=== PATIENT | female | born 1945 | race Caucasian/White ===

== ENCOUNTER → 2017-05-28 | Outpatient (CLI) | payer MEDICARE | LOC: MC.RAD 08:20 | DX: Z12.31 Encounter for screening mammogram for malignant neoplasm of breast (principal) ==

== ENCOUNTER → 2018-05-29 | Outpatient (CLI) | payer MEDICARE | LOC: MC.RAD 08:19 | DX: Z12.31 Encounter for screening mammogram for malignant neoplasm of breast (principal) ==

== ENCOUNTER → 2019-03-27 | Outpatient (CLI) | payer MEDICARE | LOC: ZCOL.LAB 13:38 | DX: H90.5 Unspecified sensorineural hearing loss (principal) ==

== ENCOUNTER → 2019-06-05 | Outpatient (CLI) | payer MEDICARE | LOC: MC.RAD 08:42 | DX: Z12.31 Encounter for screening mammogram for malignant neoplasm of breast (principal) ==

== ENCOUNTER → 2020-06-07 | Outpatient (CLI) | payer MEDICARE | LOC: MC.RAD 08:03 | DX: Z12.31 Encounter for screening mammogram for malignant neoplasm of breast (principal) ==

== ENCOUNTER → 2021-07-18 | Outpatient (CLI) | payer MEDICARE | LOC: MC.RAD 08:30 | DX: Z12.31 Encounter for screening mammogram for malignant neoplasm of breast (principal) ==

== ENCOUNTER 2024-06-24 06:39 | Day surgery (SDC) | payer MEDICARE ==
[~2024-06-24] VITALS: Ht 149.9 cm; Wt 75.0 kg
[2024-06-24] VITALS (12 sets, daily range): BP systolic 96–148; BP diastolic 55–92; PULSE 90–110; TEMP 98.7
[2024-06-24] MEDS ORDERED: 1/2 NS 1,000 ML IV SCH ×2 (07:00→12:15)
[2024-06-24 07:44] LABS: HEMOGLOBIN 10.5 g/dl (12.5-16.0); MEAN CELL VOLUME 92 fl (80.0-100.0); MEAN CORPUSCULAR HEMOGLOBIN 30 pg (27-31); MEAN CORPUSCULAR HGB CONC 32 g/dl (33.0-37.0); MEAN PLATELET VOLUME 8.9 fl (7.4-10.4); PLATELET COUNT 445 K/mm3 (130-400); RED BLOOD COUNT 3.52 M/mm3 (4.10-5.30); REDCELL DISTRIBUTION WIDTH-CV 13.3 % (11.5-14.5)
[2024-06-24 07:47] LABS: HEMATOCRIT 32.5 % (37.0-47.0)
[2024-06-24] MEDS ORDERED: NORVASC 5MG5 MG/TAB PO (07:54)
[2024-06-24] MEDS ORDERED: PRINIVIL20 MG PO (07:54)
[2024-06-24 07:57] LABS: PROTHROMBIN TIME 10.8 SECONDS (9.7-12.8)
[2024-06-24] MEDS ORDERED: SYNTHROID0.125 MG/T PO (07:58)
[2024-06-24 07:59] LABS: PARTIAL THROMBOPLASTIN TIME 30.4 SECONDS (26.0-37.0)
[2024-06-24] MEDS ORDERED: ASPIRIN E.C. 8181 MG PO (07:59)
[2024-06-24] MEDS ORDERED: LUTEIN20 M1 PO (07:59)
[2024-06-24] MEDS ORDERED: IRON TABLETS325 MG PO (08:01)
[2024-06-24] MEDS ORDERED: TYLENOL 8 HR PO (08:01)
[2024-06-24] MEDS ORDERED: MASON NATURAL2000 IU PO (08:02)
[2024-06-24] MEDS ORDERED: CENTRUM SILVER1 TA2 PO (08:03)
[2024-06-24 08:12] LABS: CALCIUM 11.4 mg/dL (8.4-10.2); CREATININE, serum 1.51 mg/dL (0.57-1.11); POTASSIUM 4.8 mEq/L (3.5-4.5)
[2024-06-24] MEDS ORDERED: Heparin 1,000 UNITS/ML 10 ML Multi-Dose VIAL IV SCH (09:42)
[2024-06-24] MEDS ORDERED: niCARdipine (Cath Lab) 100 MCG/ML 10 ML VIAL IA SCH (09:45)
[2024-06-24] MEDS ORDERED: Midazolam 2 MG/2 ML VIAL IV SCH (09:47)
[2024-06-24] MEDS ORDERED: fentaNYL 50 MCG/ML 2 ML VIAL IV SCH (09:48)
--- NOTE | 2024-06-24 09:57 | NUR ---
Please see merge document on paper chart for record of LHC with Dr. Alexandra
[2024-06-24] MEDS ORDERED: Iohexol 350 - 100 ML VIAL INCOR ONE (10:58)
--- NOTE | 2024-06-24 11:00 | NUR ---
PT RETURNED TO [facility] VIA BED FROM [employer], AWAKE AND ALERT, RADIAL BAND ON IN PLACE WITH NO O0ZING OR SWELLING, RIGHT GROIN SITE WITH SCANT DRAINAGE ON TOP OF 2X2, MARKED, AREA IS SOFT. PEDAL PULSE REMAINS STRONG. PT HAD QUESTIONS ON RECOVERY AND DR ORDERS AND ACTIVITY ORDERS REVIEWED WITH PT, CALL LIGHT IN REACH
--- NOTE | 2024-06-24 11:15 | NUR ---
RIGHT GROIN SITE REMAINS THE SAME, PT HAVING NECK AND SOME BACK DISCOMFOR THAT IS NORMAL FOR HERE SHE STATES, DOES NOT LIE FLAT WELL, REPOSITIONED AND TOWEL ROLLS USED
--- NOTE | 2024-06-24 11:30 | NUR ---
RIGHT GROIN SITE REMAINS THE SAME, SOFT, NO SIGNS OF INCREASE BLEEDING
--- NOTE | 2024-06-24 11:45 | NUR ---
RIGHT GROIN SITE REMAINS CLEAN AND DRY, NO SWELLING, PT WATCHES TV, DECLINES SNACK AT THIS TIME
[2024-06-24] MEDS ORDERED: Acetaminophen 325 MG TAB PO PRN (12:15)
--- NOTE | 2024-06-24 12:15 | NUR ---
IV REMAINS AT 100CC/HR VIA PUMP ORDERED, PT C/O INCREASE NECK AND BACK PAIN FOR LYING IN BED, RATES AT 8-9, TYLENOL 650MG PO GIVEN
--- NOTE | 2024-06-24 13:00 | NUR ---
GROIN SITE WITH SCAN AMT OF DRAINAGE ON UPPER END, 2CC OF AIR LET OUT OF BAND, WILL CON'T TO MONITOR, LUNCH ORDERED
--- NOTE | 2024-06-24 13:30 | NUR ---
TR BAND REMOVED AFTER AIR REMOVED OVER 20 MIN, NO SWELLING OR SIGNS OF BLEEDING, BANDAID OVER SITE WITH COBAN FOR SUPPORT, RIGHT GROIN SITE REMAINS THE SAME, CON'T TO MONITOR WITH SCANT/MARKED BLOOD ON TOP OF 2X2, AREA SOFT PT EATS SANDWICH, IV CON'T AT 100CC/HR
--- NOTE | 2024-06-24 14:49 | NUR ---
PT RESTING, NO CHANGES, REPORT TO KUNAL GUERRERO
--- NOTE | 2024-06-24 17:17 | NUR ---
PT TOLERATED RECOVERY PERIOD WELL. VS REMAINED WITHIN NORMAL LIMITS. RIGHT RADIAL AND FEMORAL DRESSINGS REMAINED CLEAN DRY AND INTACT. RIGHT RADIAL AND FEMORAL SITED REMAINED FREE FROM SIGNS OF BLEEDING AND HEMATOMA. PT VERBALIZED UNDERSTANDING OF DISCHARGE INSTRUCTIONS. PT FREE FROM ACUTE CONCERNS AND COMPLAINTS UPON DISCHARGE. PT ASSISTED TO ER EXIT VIA WHEELCHAIR. IV DISCONTINUED.
== END 2024-06-24 17:19 | disposition home or self-care (01) ==
LOC: COL.CAR 06:39
PROVIDERS: Internal Medicine Cardiovascular Disease
DX: I35.0 Nonrheumatic aortic (valve) stenosis (principal); I10 Essential (primary) hypertension; E78.5 Hyperlipidemia, unspecified; E66.9 Obesity, unspecified; Z68.34 Body mass index [BMI] 34.0-34.9, adult; Z79.899 Other long term (current) drug therapy
CPT/HCPCS: C1760; C1769; C1894; J1644; J2250; J2404; J3010; Q9967